=== PATIENT | male | born 1945 | race Caucasian/White ===

== ENCOUNTER 2016-12-28 07:28 | Day surgery (SDC) | payer MEDICARE, BC ==
[~2016-12-28 07:28] MED LIST: LIDOCAINE HCL 1% MPF SOL ONE; PROPOFOL 500 MG/50 ML EMU IV ONE
[2016-12-28] MEDS ORDERED: GENTAMICIN SULFATE 40 MG/ML SOL ONE ×2 (07:37→07:39)
[2016-12-28] MEDS ORDERED: AMPICILLIN 1 GM PDS ONE (07:37)
[2016-12-28] MEDS ORDERED: SODIUM CHLORIDE 20 ML 20 ML ONE (08:50)
[2016-12-28 09:57] VITALS: TEMP 98.4
[2016-12-28 10:38] VITALS: PULSE 66; RESP 20
[2016-12-28 10:43] VITALS: BP 171/74; O2SAT 98
== END 2016-12-28 10:55 | disposition home or self-care (01) | DRG 951 ==
LOC: SURG 07:28
PROVIDERS: ATTEND Internal Medicine Gastroenterology
DX: Z12.11 Encounter for screening for malignant neoplasm of colon (principal); K64.8 Other hemorrhoids; Z86.010 Personal history of colon polyps; K57.30 Diverticulosis of large intestine without perforation or abscess without bleeding; Z79.01 Long term (current) use of anticoagulants
CPT/HCPCS: 36415; 85610; G0105; J0290; J1580; J2001; J2704

== ENCOUNTER 2017-03-24 07:20 | Day surgery (SDC) | payer MEDICARE, BC ==
[2017-03-24] MEDS ORDERED: ACETAZOLAMIDE 500 MG CER ONE (07:34)
[2017-03-24] MEDS ORDERED: MIDAZOLAM 2 MG/2 ML SOL ONE (07:48)
[2017-03-24] MEDS: PROPARACAINE HCL 0.5% OPHTHALMIC SOL ONE ×3 (07:48→08:36)
[2017-03-24] MEDS: PHENYLEPHRINE HCL 10% OPHTHAL SOL LEFTEYE ONE ×2 (07:50→08:05)
[2017-03-24] MEDS: CYCLOPENTOLATE 1% SOL ONE ×2 (07:52→08:06)
[2017-03-24] MEDS: KETOROLAC 0.5% OPTH 60 DROP SOL ONE ×2 (07:53→08:07)
[2017-03-24] MEDS ORDERED: BSS 500 ML 500 ML IR ONE (08:03)
[2017-03-24] MEDS ORDERED: POVIDONE IODINE 5% SOL ONE (08:03)
[2017-03-24] MEDS ORDERED: LIDOCAINE HCL 1% MPF SOL ONE (08:03)
[2017-03-24 09:14] VITALS: BP 144/83; PULSE 67; RESP 20; TEMP 97.9; O2SAT 98
== END 2017-03-24 09:30 | disposition home or self-care (01) | DRG 125 ==
LOC: SURG 07:20
PROVIDERS: ATTEND Ophthalmology
DX: H25.9 Unspecified age-related cataract (principal); E11.9 Type 2 diabetes mellitus without complications; Z79.4 Long term (current) use of insulin
CPT/HCPCS: J2250; J2001

== ENCOUNTER 2017-12-25 18:49 | Emergency (ER) | payer MEDICARE, BC ==
[2017-12-25 19:42] VITALS: RESP 16; TEMP 97.3
[2017-12-25 20:06] LABS: BASOPHILS % (AUTO) 0 % (0-3); EOSINOPHILS % (AUTO) 3 % (0-9); HEMATOCRIT 27 % (39-53); HEMOGLOBIN 9.2 gm/dl (13.5-17.7); LYMPHOCYTES % (AUTO) 4.71 % (10-50); MEAN CORPUSCULAR VOLUME 91 fL (80-100); MONOCYTES % (AUTO) 5.6 % (0-12); NEUTROPHILS % (AUTO) 85.8 % (37-80)
[2017-12-25 20:07] LABS: CALCIUM 8.3 mg/dl (8.5-10.1)
[2017-12-25 20:08] LABS: CREATININE 10.45 mg/dl (0.80-1.30)
[2017-12-25 20:12] LABS: INR 4.31 (0.86-1.12)
[2017-12-25] MEDS ORDERED: PHYTONADIONE 10 MG/ML SOL IM ONE (20:16)
[2017-12-25] MEDS ORDERED: CEPHALEXIN 250 MG/5 ML BOTTLE PO ONE (20:17)
[2017-12-25] MEDS ORDERED: CEPHALEXIN 250 MG/5 ML BOTTLE ONE (20:20)
[2017-12-25] MEDS ORDERED: PHYTONADIONE 10 MG/ML SOL ONE (20:20)
[2017-12-25 20:45] VITALS: BP 165/79; PULSE 70; O2SAT 97
== END 2017-12-25 20:42 | disposition home or self-care (01) | DRG 605 ==
LOC: ED 18:49
DX: S50.811A Abrasion of right forearm, initial encounter (principal); E11.9 Type 2 diabetes mellitus without complications; L03.113 Cellulitis of right upper limb; Z79.01 Long term (current) use of anticoagulants; Z79.4 Long term (current) use of insulin
CPT/HCPCS: 36415; 80048; 85025; 85610; 96372; 99282; 99283; J3430; A6402; A6446; A9270-GY

== ENCOUNTER 2018-03-28 08:43 | Emergency (ER) | payer MEDICARE, BC ==
[2018-03-28 09:00] VITALS: RESP 18; TEMP 97.3
[2018-03-28 10:46] VITALS: BP 132/72; PULSE 72; O2SAT 99
== END 2018-03-28 11:00 | disposition home or self-care (01) | DRG 392 ==
LOC: ED 08:43
DX: K59.00 Constipation, unspecified (principal)
CPT/HCPCS: 74019; 82962; 99282; 99284

== ENCOUNTER 2018-09-08 01:06 | Emergency (ER) | payer MEDICARE, BC ==
[2018-09-08 02:11] VITALS: TEMP 97.8
[2018-09-08] MEDS ORDERED: ASPIRIN 81 MG CHEWABLE CTB PO ONE (02:20)
[2018-09-08] MEDS ORDERED: ONDANSETRON HCL 4 MG/2 ML SOL IV ONE (02:20)
[2018-09-08 02:22] LABS: BASOPHILS % (AUTO) 0 % (0-3); EOSINOPHILS % (AUTO) 2 % (0-9); HEMATOCRIT 29 % (39-53); HEMOGLOBIN 9.6 gm/dl (13.5-17.7); LYMPHOCYTES % (AUTO) 4.1 % (10-50); MEAN CORPUSCULAR HEMOGLOBIN 32.8 pg (27.0-32.0); MEAN CORPUSCULAR HGB CONC 33.5 gm/dl (32.0-36.0); MEAN CORPUSCULAR VOLUME 98 fL (80-100); MONOCYTES % (AUTO) 5.3 % (0-12); NEUTROPHILS % (AUTO) 88.4 % (37-80)
[2018-09-08] MEDS ORDERED: PANTOPRAZOLE SODIUM 40 MG/10 ML PDS IV ONE (02:23)
[2018-09-08] MEDS ORDERED: ONDANSETRON HCL 4 MG/2 ML SOL ONE (02:29)
[2018-09-08] MEDS ORDERED: ASPIRIN 81 MG CHEWABLE CTB ONE (02:29)
[2018-09-08] MEDS ORDERED: PANTOPRAZOLE SODIUM 40 MG/10 ML PDS ONE (02:29)
[2018-09-08] MEDS ORDERED: SODIUM CHLORIDE 0.9% 500 ML 500 ML IV SCH (02:30)
[2018-09-08 02:35] LABS: ALKALINE PHOSPHATASE 101 IU/L (46-116); ALT 22 IU/L (14-63); AST 13 IU/L (15-37); BILIRUBIN,TOTAL 0.4 mg/dl (0.2-1.0); BLOOD UREA NITROGEN 68 mg/dl (7-18); CALCIUM 9.1 mg/dl (8.5-10.1); CARBON DIOXIDE 25.8 mEq/L (21-32); CHLORIDE 91 mMol/L (98-107); GLUCOSE 246 mg/dl (74-106); SODIUM 129 mMol/L (136-145); TOTAL PROTEIN 7.1 gm/dl (6.4-8.2)
[2018-09-08 02:47] LABS: TROP I 0.053 ng/ml (0.000-0.056)
[2018-09-08] MEDS ORDERED: FENTANYL 100MCG/2ML SOL IV ONE ×2 (02:56→05:43)
[2018-09-08] MEDS ORDERED: FENTANYL 100MCG/2ML SOL ONE (02:57)
[2018-09-08 03:16] LABS: INR 1.72 (0.86-1.12)
[2018-09-08] MEDS ORDERED: FENTANYL 100MCG/2ML SOL IV PRN (04:55)
[2018-09-08] MEDS ORDERED: ONDANSETRON HCL 4 MG/2 ML SOL IV PRN (04:57)
[2018-09-08] MEDS ORDERED: SODIUM CHLORIDE 0.9% 1000ML 1,000 ML IV SCH (05:00)
[2018-09-08 05:25] LABS: DIALYSATE WBCS 25
[2018-09-08] MEDS ORDERED: LACTATED RINGERS with DEXTROSE 1,000 ML IV SCH (05:45)
[2018-09-08 06:03] LABS: APPEARANCE,URINE Clear; BILIRUBIN,URINE NEGATIVE (NEGATIVE); COLOR,URINE Yellow; GLUCOSE, URINE (UA) 1+ (NEGATIVE); KETONES,URINE NEGATIVE (NEGATIVE); LEUKOCYTE ESTERASE ,URINE NEGATIVE (NEGATIVE); NITRATE,URINE NEGATIVE (NEGATIVE); OCCULT BLOOD,URINE 2+ (NEG-TRACE); UROBILINOGEN,URINE 0.2 (0.2-1.0 EU)
[2018-09-08 06:15] LABS: BACTERIA TRACE (< 1+); CRYSTALS NEGATIVE (0-3 AVE/HPF); EPITHELIAL CELLS 0-1 (SQUAMOUS); RBC,URINE 15-25 (0-3AV/HPF)
[2018-09-08] MEDS ORDERED: LACTATED RINGERS 1,000 ML IV SCH (06:45)
[2018-09-08] MEDS ORDERED: HYDRALAZINE HYDROCHLORIDE 10 MG TAB PO SCH (08:00)
[2018-09-08 08:26] VITALS: RESP 15
[2018-09-08 09:17] VITALS: BP 202/90; PULSE 68; O2SAT 96
== END 2018-09-08 09:00 | disposition short-term general hospital (02) | DRG 440 ==
LOC: ED 01:06
DX: K85.90 Acute pancreatitis without necrosis or infection, unspecified (principal); Z79.01 Long term (current) use of anticoagulants; T80.90XA Unspecified complication following infusion and therapeutic injection, initial encounter; N18.9 Chronic kidney disease, unspecified; E11.9 Type 2 diabetes mellitus without complications; Z79.4 Long term (current) use of insulin; I48.91 Unspecified atrial fibrillation
CPT/HCPCS: 36415; 71045; 74176; 80053; 81001; 82009; 83880; 84484; 85025; 85610; 87040; 87070; 87075; 87205; 93005; 96365; 96366; 96374; 96375; 99285; 99291; J2405; J3010; A9270-GY

== ENCOUNTER 2018-11-03 19:32 | Inpatient (IN) | payer MEDICARE, BC ==
[2018-11-03] MEDS ORDERED: SODIUM CHLORIDE 0.9% 500 ML 500 ML IV ONE (20:34)
[2018-11-03] MEDS ORDERED: ACETAMINOPHEN 325 MG PO ONE (20:37)
[2018-11-03 20:51] LABS: BASOPHILS % (AUTO) 0 % (0-3); EOSINOPHILS % (AUTO) 3 % (0-9); HEMATOCRIT 29 % (39-53); HEMOGLOBIN 9.4 gm/dl (13.5-17.7); LYMPHOCYTES % (AUTO) 5.7 % (10-50); MEAN CORPUSCULAR HEMOGLOBIN 32.3 pg (27.0-32.0); MEAN CORPUSCULAR HGB CONC 32.1 gm/dl (32.0-36.0); MONOCYTES % (AUTO) 6.9 % (0-12); NEUTROPHILS % (AUTO) 83.7 % (37-80)
[2018-11-03 20:59] LABS: INR 3.25 (0.86-1.12)
[2018-11-03 21:00] LABS: MEAN CORPUSCULAR VOLUME 100 fL (80-100)
[2018-11-03 21:07] LABS: BILIRUBIN,TOTAL 0.3 mg/dl (0.2-1.0); CALCIUM 8.1 mg/dl (8.5-10.1); CARBON DIOXIDE 24.8 mEq/L (21-32); POTASSIUM 3.4 mMol/L (3.5-5.1); TOTAL PROTEIN 6.6 gm/dl (6.4-8.2)
[2018-11-03 21:09] LABS: CREATININE 13.95 mg/dl (0.80-1.30)
[2018-11-03] MEDS ORDERED: ACETAMINOPHEN 325 MG ONE (21:11)
[2018-11-03] MEDS ORDERED: NITROGLYCERIN 0.4 MG TAB SL PRN (22:44)
[2018-11-03] MEDS ORDERED: ACETAMINOPHEN 325 MG PO PRN (22:44)
[2018-11-03] MEDS ORDERED: SEVELAMER CARBONATE PO PRN (22:44)
[2018-11-03] MEDS: CEFTRIAXONE 1 GM PDS 1 GM in SODIUM CHLORIDE 0.9% 50 ML 50 ML IV SCH (23:00)
[2018-11-03] MEDS ORDERED: CEFTRIAXONE 1 GM PDS ONE (23:19)
[2018-11-03] MEDS ORDERED: SODIUM CHLORIDE 0.9% 50 ML 50 ML IV ONE (23:21)
[2018-11-04] MEDS: VANCOMYCIN HCL 500 MG PDS 1,000 MG in SODIUM CHLORIDE 0.9% 250 ML 250 ML IV SCH ×2 (00:30→11:13)
[2018-11-04] MEDS ORDERED: VANCOMYCIN HYDROCHLORIDE 500 MG PDS IV ONE (00:37)
[2018-11-04] MEDS ORDERED: SODIUM CHLORIDE 0.9% 250 ML 250 ML IV ONE (00:38)
[2018-11-04] MEDS ORDERED: WARFARIN SODIUM 7.5 MG TAB PO SCH (01:00)
[2018-11-04] MEDS ORDERED: NOREPINEPHRINE BITARTRATE 4 MG/4 ML SOL IV SCH (01:00)
[2018-11-04] MEDS ORDERED: NOVOLOG 70/30 FLEXPEN SC ONE (01:22)
[2018-11-04] MEDS ORDERED: TORSEMIDE 10 MG TABLET ONE (08:17)
[2018-11-04 08:18] LABS: APPEARANCE,URINE Clear; BILIRUBIN,URINE NEGATIVE (NEGATIVE); COLOR,URINE Yellow; GLUCOSE, URINE (UA) TRACE (NEGATIVE); KETONES,URINE NEGATIVE (NEGATIVE); LEUKOCYTE ESTERASE ,URINE NEGATIVE (NEGATIVE); NITRATE,URINE NEGATIVE (NEGATIVE); OCCULT BLOOD,URINE TRACE INTACT (NEG-TRACE); PH,URINE 5.5; UROBILINOGEN,URINE 0.2 (0.2-1.0 EU)
[2018-11-04 08:27] VITALS: BP 155/76; PULSE 72; RESP 20; TEMP 98; O2SAT 97
[2018-11-04 08:33] LABS: BACTERIA NEGATIVE (< 1+); CRYSTALS NEGATIVE (0-3 AVE/HPF); EPITHELIAL CELLS 0-2 (SQUAMOUS); RBC,URINE 0-2 (0-3AV/HPF)
[2018-11-04] MEDS ORDERED: HUMULIN N PEN 100 U/ML SC SCH ×2 (09:00→18:00)
[2018-11-04] MEDS ORDERED: [UNRECOGNIZED DRUG - OTHER] SQ SCH (09:00)
[2018-11-04] MEDS ORDERED: CHOLECALCIFEROL 1,000 IU TAB PO SCH (09:00)
[2018-11-04] MEDS ORDERED: REG INSULIN SQ SCH ×2 (09:00→18:00)
[2018-11-04] MEDS ORDERED: AMLODIPINE 5 MG TAB PO SCH (09:00)
[2018-11-04] MEDS ORDERED: TORSEMIDE 20 MG TAB PO SCH (09:00)
[2018-11-04] MEDS ORDERED: MULTIVITAMIN2 1 EA TAB PO SCH (09:00)
[2018-11-04] MEDS ORDERED: ASPIRIN EC 81 MG PO SCH (09:00)
[2018-11-04] MEDS ORDERED: INSULIN NPH HUM SQ SCH ×2 (09:00→18:00)
[2018-11-04] MEDS ORDERED: SEVELAMER CARBONATE PO SCH (09:00)
[2018-11-04] MEDS ORDERED: RANITIDINE HCL 150 MG TAB PO SCH (09:00)
[2018-11-04] MEDS ORDERED: CLONIDINE 0.1 MG TAB PO SCH (09:00)
[2018-11-04] MEDS: CEFTRIAXONE 1 GM PDS 1 GM in SODIUM CHLORIDE 0.9% 50 ML 50 ML IV SCH (11:13)
[2018-11-04] MEDS ORDERED: [UNRECOGNIZED DRUG - OTHER] SQ SCH (18:00)
[2018-11-04] MEDS ORDERED: ROSUVASTATIN CALCIUM 10 MG TAB PO SCH (21:00)
[2018-11-04] MEDS ORDERED: METHYLCELLULOSE PO SCH (21:00)
[2018-11-04] MEDS ORDERED: TERAZOSIN HYDROCHLORIDE 1 MG CAP PO SCH (21:00)
[2018-11-04] MEDS ORDERED: GABAPENTIN 100 MG CAP PO SCH (21:00)
[2018-11-04] MEDS ORDERED: ALLOPURINOL 100 MG TAB PO SCH (21:00)
== END 2018-11-04 10:30 | disposition home or self-care (01) | DRG 605 ==
LOC: ED 19:32 → ACUTE CARE 22:41
PROVIDERS: ADMIT Internal Medicine; ATTEND Internal Medicine
DX: S40.022A Contusion of left upper arm, initial encounter (principal); W10.9XXA Fall (on) (from) unspecified stairs and steps, initial encounter; S46.212A Strain of muscle, fascia and tendon of other parts of biceps, left arm, initial encounter; D72.829 Elevated white blood cell count, unspecified; B99.9 Unspecified infectious disease; E11.9 Type 2 diabetes mellitus without complications; Z79.01 Long term (current) use of anticoagulants; Z79.4 Long term (current) use of insulin
CPT/HCPCS: 36415; 73200; 80053; 81001; 82962; 85025; 85610; 85651; 87040; 93005; 96365; 99070; 99222; 99283; J0696; J1815; J3370; A9270-GY

== ENCOUNTER 2018-12-01 08:06 | Emergency (ER) | payer MEDICARE, BC ==
[2018-12-01 08:27] VITALS: RESP 16; TEMP 96.7
[2018-12-01 09:17] VITALS: BP 147/74; PULSE 69; O2SAT 98
== END 2018-12-01 09:10 | disposition home or self-care (01) | DRG 950 ==
LOC: ED 08:06
DX: T81.89XD Other complications of procedures, not elsewhere classified, subsequent encounter (principal); Z79.01 Long term (current) use of anticoagulants
CPT/HCPCS: 12011; 99282; G0168; A6402